=== PATIENT | male | born 1990 ===

== ENCOUNTER 2022-06-03 05:10 | Emergency (ER) | payer SELFPAY ==
[2022-06-03 05:16] VITALS: BP 149/91
[2022-06-03] MEDS ORDERED: oxyCODONE /ACETAMINOPHEN 5-325MG TAB PO ONE (05:24)
--- NOTE | 2022-06-03 05:34 | Emergency Department Report ---
ED Male HPI - General Chief complaint: Urogenital-Male Stated complaint: PENIS PROBLEM Source: patient, RN notes reviewed Mode of arrival: Ambulatory Limitations: No Limitations - History of Present Illness Initial comments: During the history and physical examination, I am chaperoned by nurse Lady Carlson. This is a 32-year-old gentleman who is medically healthy, who denies chronic medical conditions, who presents to the department today with a swollen penis. He reports that he was in his usual state of health, and used a penis pump this morning. He believes that he used it at around 215 this morning. He states that he kept it on for about an hour to hour and 15 minutes. The pump has been removed. However, he has distal penile swelling, and some suprapubic black and blue. He has no testicular pain. He is able to urinate. He endorses a cool sensation on the dorsal lateral aspect of the right side of the penis. No other injuries. He is markedly anxious. -: Sudden, hour(s) Location: penis Radiation: none Severity: moderate Consistency: constant Improves with: none Worsens with: none denies other symptoms, other (Patient is very anxious) - Related Data Previous Rx's Medication Instructions Recorded Last Taken Type Acetaminophen [Non-Aspirin Extra 500 mg PO Q6HR PRN #30 tablet 06/03/22 Unknown Rx Strength] Ibuprofen [Motrin] 600 mg PO Q8H PRN #30 tablet 06/03/22 Unknown Rx Morphine Sulfate [Morphine Sulfate 7.5 mg PO Q6HR PRN #10 tablet 06/03/22 Unknown Rx IR] Allergies Allergy/AdvReac Type Severity Reaction Status Date / Time No Known Allergies Allergy Verified 06/03/22 05:15 ED Review of Systems ROS: Stated complaint: PENIS PROBLEM Other details as noted in HPI Comment: All other systems reviewed and negative Genitourinary: other (Distal penile pain and swelling). denies: urgency, dysuria, frequency, hematuria, discharge, testicular pain, testicular mass Skin: as per HPI Psychiatric: anxiety ED Past Medical Hx - Past Medical History Previous Medical History?: No - Surgical History Past Surgical History?: No - Social History Smoking Status: Unknown if ever smoked Substance Use Type: None - Medications Home Medications: Home Medications Medication Instructions Recorded Confirmed Last Taken Type Acetaminophen [Non-Aspirin Extra 500 mg PO Q6HR PRN #30 tablet 06/03/22 Unknown Rx Strength] Ibuprofen [Motrin] 600 mg PO Q8H PRN #30 tablet 06/03/22 Unknown Rx Morphine Sulfate [Morphine Sulfate 7.5 mg PO Q6HR PRN #10 tablet 06/03/22 Unknown Rx IR] ED Physical Exam - General Limitations: No Limitations General appearance: alert, anxious - Head Head exam: Present: atraumatic, normocephalic - Eye Eye exam: Present: normal appearance, EOMI. Absent: nystagmus - ENT ENT exam: Present: normal exam, normal orophraynx, mucous membranes moist, normal external ear exam - Neck Neck exam: Present: normal inspection, full ROM. Absent: tenderness, meningismus - Respiratory Respiratory exam: Present: normal lung sounds bilaterally. Absent: respiratory distress, wheezes, rales, rhonchi, stridor, decreased breath sounds - Cardiovascular Cardiovascular Exam: Present: regular rate, normal rhythm, normal heart sounds. Absent: bradycardia, tachycardia, irregular rhythm, systolic murmur, diastolic murmur, rubs, gallop - GI/Abdominal GI/Abdominal exam: Present: soft. Absent: distended, tenderness, guarding, rebound, rigid, pulsatile mass - Rectal Rectal exam: Present: deferred - exam: Present: other (The distal penis is swollen dorsally and laterally. There is minimal suprapubic ecchymosis. The phallus itself is minimally tender distal/dorsal.). Absent: normal inspection, testicular tenderness, scrotal swelling, vertical testicular lie External exam: Present: swelling, other (The testicles are descended bilaterally. There is a normal cremasteric reflex bilaterally. There is normal testicular lie bilaterally. The testicles are nontender.). Absent: erythema, lesions, lacerations, bleeding - Extremities Exam Extremities exam: Present: normal inspection, full ROM, other (2+ pulses noted in the bilateral upper and lower extremities. There is no palpable cord. negative Homans sign. Muscular compartments are soft. The pelvis is stable.). Absent: pedal edema, calf tenderness - Back Exam Back exam: Present: normal inspection. Absent: tenderness, CVA tenderness (R), CVA tenderness (L), paraspinal tenderness, vertebral tenderness - Neurological Exam Neurological exam: Present: alert, oriented X3, normal gait, other (No facial droop. Tongue midline. Extraocular movements intact bilaterally. Facial sensation intact to light touch in V1, V2, V3 distribution bilaterally. 5 and a 5 strength in 4 extremities. Sensation intact to light touch in 4 extre mities.). Absent: motor sensory deficit - Psychiatric Psychiatric exam: Present: anxious - Skin Skin exam: Present: warm, dry, intact, normal color. Absent: rash ED Course Vital Signs 06/03/22 05:15 Temperature 98.6 F Pulse Rate 93 H Respiratory 18 Rate Blood Pressure 149/91 O2 Sat by Pulse 100 Oximetry - Reevaluation(s) Reevaluation #1: 06/03/22 05:36 Patient is able to urinate without difficulty in the emergency room. He denies irritative and obstructive urinary symptoms. Urethral injury is very unlikely. He is suitable to follow-up with an outpatient urologist ED Medical Decision Making - Lab Data Vital Signs 06/03/22 05:15 Temperature 98.6 F Pulse Rate 93 H Respiratory 18 Rate Blood Pressure 149/91 O2 Sat by Pulse 100 Oximetry - Medical Decision Making Differential diagnosis, including but not limited to: Corpus cavernosum injury, nonspecific penile injury Assessment and plan: 32-year-old gentleman with distal dorsal penile swelling, after keeping a penile pump on his erection for about an hour to hour and 15 minutes. His testicles are nontender. He is able to urinate. He does not have necrotic tissue. Rest, ice, compression, elevation, supportive undergarments, avoidance of penile pumps. Patient is advised to closely follow-up with an outpatient urologist. All questions answered. Return precautions reviewed. Critical care attestation.: If time is entered above; I have spent that time in minutes in the direct care o f this critically ill patient, excluding procedure time. ED Disposition Clinical Impression: Penis injury Disposition: HOME / SELF CARE / HOMELESS Is pt being admited?: No Does the pt Need Aspirin: No Condition: Good Additional Instructions: Rest and avoid heavy lifting. Avoid strenuous physical activities. Please make certain to wear supportive underwear and undergarments. Please do not use penis pump at all in the future recommend the patient follow-up with an outpatient urology specialist for repeat checkup and evaluation within the next 3 to 5 days. [facility] is a local urology practice. Drs. Verdin and Niall are local urology specialists. Patient is also advised to avoid sexual activity, and avoidance of erection if possible. Take the Motrin and Tylenol as needed for physical pain. Patient has also received a prescription for morphine sulfate for severe breakthrough pain. Exercise caution when taking this medication, as it is an opioid. This medication may cause addiction and habit formation. Use this medication sparingly, and if taking it, do not drive, consume alcohol, or make important decisions. Please return to the emergency room right away with new pain, worsened pain, jane ration of pain, projectile vomiting, change in mental status, confusion, inability tolerate liquid feeds, new, worsened or different symptoms not present on the initial emergency room evaluation Prescriptions: Morphine Sulfate [Morphine Sulfate IR] 7.5 mg PO Q6HR PRN #10 tablet PRN Reason: Pain , Severe (7-10) Ibuprofen [Motrin] 600 mg PO Q8H PRN #30 tablet PRN Reason: Pain Acetaminophen [Non-Aspirin Extra Strength] 500 mg PO Q6HR PRN #30 tablet PRN Reason: Pain , Severe (7-10) Referrals: [facility] [Provider Group] - 3-5 Days HERMINIA VERDIN MD [Staff Physician] - 3-5 Days ANDRÉS DONIS MD [Staff Physician] - 3-5 Days Forms: Work/School Release Form(ED)
== END 2022-06-03 06:57 | disposition home or self-care (01) ==
LOC: ED 05:10
DX: S39.94XA Unspecified injury of external genitals, initial encounter (principal); Z79.899 Other long term (current) drug therapy; X58.XXXA Exposure to other specified factors, initial encounter; Y93.89 Activity, other specified; Y92.89 Other specified places as the place of occurrence of the external cause; Y99.8 Other external cause status
CPT/HCPCS: 99282